=== PATIENT | female | born 1990 | race Caucasian/White ===

== ENCOUNTER → 2016-09-22 | Outpatient (CLI) | payer OTHER ==
[~2016-09-22] MED LIST: ACET-1311 PO; HYDR-5688 PO; MAGNEVIST IV PRN; OXYC-57 PO
--- NOTE | 2016-09-22 20:17 | DIAGNOSTIC IMAGING REPORT ---
MRI OF THE ABDOMEN WITH AND WITHOUT CONTRAST CLINICAL HISTORY: Persistent left-sided abdominal pain. COMPARISON STUDY: CT of the abdomen and pelvis and pelvic ultrasound July 24, 2016 TECHNIQUE: Utilizing a 1.5 Jenna magnet and dedicated coil, multiplanar, multiecho imaging of the abdomen was performed pre and postcontrast administration. Injection of 20 cc of Magnevist IV was uneventful. FINDINGS: Liver morphology is normal. Note is made of a 1.8 cm hypervascular lateral segment hepatic lesion shown on axial image 19 of 144. This lesion is imperceptible on the T2-weighted sequences and remains slightly hyperintense when compared to the background liver on the more delayed phases. This suggests focal nodular hyperplasia. No additional hepatic lesions are present. The spleen, adrenal glands, kidneys and pancreas are normal. A marker was placed on the skin at site of maximal pain which overlies the left mid abdomen. No associated abnormality was identified. No mass or hernia was identified. There is no fluid collection. No lymphadenopathy was noted. Pelvic structures were unremarkable. The uterus is retroverted. A tampon is in place. Skeletal structures are unremarkable. IMPRESSION: 1. 1.8 cm hypervascular lateral segment hepatic lesion which is suggestive of focal nodular hyperplasia. 2. No significant abnormality within the abdomen or pelvis by MRI. No findings to account for left mid abdominal pain. Electronically signed by: Deep Walters M.D. 09/22/2016 8:16 PM Dictated Date/Time: 09/22/2016 8:08 PM
== END | disposition home or self-care (01) ==
LOC: C.MRI 17:58
PROVIDERS: ATTEND Surgery
DX: R10.9 Unspecified abdominal pain (principal); K76.9 Liver disease, unspecified